=== PATIENT | male | born 1950 | race Caucasian/White ===

== ENCOUNTER → 2024-01-31 09:22 | Outpatient (REF) | payer MEDICARE, SELFPAY ==
[2024-01-31 10:41] LABS: ALT (SGPT) 15 U/L (0-50); AST (SGOT) 22 U/L (17-59); Alkaline Phosphatase 98 U/L (38-126); Blood Urea Nitrogen 22 mg/dl (9-20); Carbon Dioxide 28 mmol/L (22-30); Chloride 102 mmol/L (98-107); Glucose 107 mg/dl (70-99); Potassium 4.6 mmol/L (3.5-5.1); Sodium 133 mmol/L (135-145); Total Bilirubin 1.2 mg/dl (0.2-1.3); Total Protein 6.9 g/dl (6.3-8.2); eGFR > 60.00
[2024-01-31 10:54] LABS: Glycohemoglobin (HgbA1c) 5.8 % (4.0-5.6)
[2024-01-31 11:32] LABS: PSA, Total - Diagnostic 0.17 ng/ml (0.0-4.0)
== END ==
LOC: REG 09:22
PROVIDERS: ATTENDING PHYSICIAN Specialist; FAMILY PHYSICIAN Nurse Practitioner Family
DX: R97.20 Elevated prostate specific antigen [PSA] (principal); R73.01 Impaired fasting glucose
CPT/HCPCS: 36415; 80053; 83036; 84153

== ENCOUNTER → 2024-06-08 07:38 | Outpatient (REF) | payer MEDICARE, SELFPAY ==
[2024-06-08 09:26] LABS: % Basophils 1.3 % (0-2); % Eosinophils 2.9 % (0-6); % Immature Granulocytes 0.4 % (0-0.5); % Lymphocytes 27.5 % (20.5-51.1); % Monocytes 11.6 % (1.7-9.3); % Neutrophils 56.3 % (42.2-75.2); Absolute Basophils 0.1 10^3/uL (0-0.2); Absolute Eosinophils 0.2 10^3/uL (0-0.7); Absolute Lymphocytes 1.5 10^3/uL (1.2-3.4); Absolute Monocytes 0.7 10^3/uL (0.1-0.6); Absolute Neutrophils 3.2 10^3/uL (1.4-6.5); Hematocrit 38.9 % (39.0-52.0); Hemoglobin 13.4 g/dL (13.0-18.0); Mean Corp Hgb Conc. 34.4 g/dL (33.0-37.0); Mean Corpuscular Hgb 30.5 pg (27.0-31.0); Mean Corpuscular Volume 88.4 fL (80.0-94.0); Mean Platelet Volume 10.3 fL (7.4-10.4); Nucleated Red Blood Cells % 0 % (-); Platelet Count 173 10^3/uL (130-400); Red Cell Dist. Width 13.1 % (11.5-14.5); White Blood Cell Count 5.6 10^3/uL (4.8-10.8)
[2024-06-08 11:41] LABS: LDH 189 U/L (120-246)
== END ==
LOC: REG 07:38
PROVIDERS: ATTENDING PHYSICIAN Dermatology; FAMILY PHYSICIAN Family Medicine; REFERRING PHYSICIAN Specialist
DX: C85.89 Other specified types of non-Hodgkin lymphoma, extranodal and solid organ sites (principal)
CPT/HCPCS: 36415; 71046; 83615; 85025

== ENCOUNTER → 2024-08-05 10:47 | Outpatient (REF) | payer MEDICARE, SELFPAY ==
[2024-08-05 14:12] LABS: PSA, Total - Diagnostic 0.13 ng/ml (0.0-4.0)
== END ==
LOC: REG 10:47
PROVIDERS: ATTENDING PHYSICIAN Family Medicine Geriatric Medicine; FAMILY PHYSICIAN Family Medicine; REFERRING PHYSICIAN Specialist
DX: C61 Malignant neoplasm of prostate (principal)
CPT/HCPCS: 36415; 84153

== ENCOUNTER → 2025-01-08 09:54 | Outpatient (REF) | payer MEDICARE, SELFPAY ==
--- NOTE | 2025-01-08 11:02 | CARDSERVDEF ---
Echocardiogram with Definity completed after protocol screening completed. Allergies verified.
Patent IV site: Right upper arm inserted by IV team, site clear
IV site flushed with 0.9% NaCl pre and post administration.
Diluted bolus method utilized to enhance visualization of ventricular gómez.
Total volume given: __3__ mL
Patient tolerated all procedures well without complications.
Heplock D/C ed at 1100, site clear, no redness, no edema. Pressure held, no bleeding, 2x2 applied and taped. Pt offers no complaints.
== END ==
LOC: RCS 09:54
PROVIDERS: ATTENDING PHYSICIAN Internal Medicine Cardiovascular Disease; FAMILY PHYSICIAN Nurse Practitioner Family
DX: I48.0 Paroxysmal atrial fibrillation (principal); R06.09 Other forms of dyspnea
CPT/HCPCS: 93306; Q9957

== ENCOUNTER → 2025-01-21 07:19 | Outpatient (REF) | payer MEDICARE, SELFPAY | LOC: PAVMRI 07:19 | PROVIDERS: ATTENDING PHYSICIAN Otolaryngology; FAMILY PHYSICIAN Nurse Practitioner Family | DX: H90.3 Sensorineural hearing loss, bilateral (principal) | CPT/HCPCS: 70553; A9575 ==

== ENCOUNTER → 2025-02-05 14:35 | Outpatient (REF) | payer MEDICARE, SELFPAY ==
[2025-02-05 16:11] LABS: PSA, Total - Diagnostic 0.16 ng/ml (0.0-4.0)
== END ==
LOC: REG 14:35
PROVIDERS: ATTENDING PHYSICIAN Family Medicine Geriatric Medicine; FAMILY PHYSICIAN Family Medicine
DX: C61 Malignant neoplasm of prostate (principal)
CPT/HCPCS: 36415; 84153

== ENCOUNTER 2025-03-04 11:16 | Emergency (ER) | payer MEDICARE, SELFPAY ==
[2025-03-04 11:31] VITALS: BP 129/69
--- NOTE | 2025-03-04 14:49 | ED.GENMED ---
History of Present Illness
General
Chief Complaint: Back Pain
Source: patient
Time Seen by Provider: 03/04/25 13:51
History of Present Illness
History of Present Illness:
74-year-old male presents to the emergency room complaining of back pain. Patient indicates he has pain in his upper lumbar region more on the right than the left but exists bilaterally. The pain does not radiate up his back nor down to his legs.
Pain is worse with movement. He denies shortness of breath. He has been seeing a chiropractor who helped to manipulate his floating ribs but the pain still exist. He states the pain seemed to get worse after he was maneuvered on a gurney to
obtain an MRI of his brain recently. He denies any bowel or bladder dysfunction. He denies any numbness in his extremities or perineal area. He denies any urinary symptoms. Patient was seen by an orthopedic surgeon recently who referred him to
outside pain management and he has a MRI scheduled for 5 days from now. Patient is not sure he could last all then. He has been taking 200 mg of ibuprofen once at night for the discomfort and no other medications.
Past History
Past History
ED Past Medical History: None, Arrthythmia (Atrial fib questionable), Cancer (Colon CA, Prostate CA with radiation), Hypercholesterolemia and Other (Melanoma)
ED Past Surgical History: Bowel resection (Colostomy with reversal), Orthopedic and Other (Cataract Surgery X2)
Social History
Tobacco: Former smoker
Alcohol: None
Drug: None
Personal: Single
Living: alone
Phy Exam
Physical Exam
Physical Exam:
General: Awake, Alert, Oriented X3. No acute distress. Very high BMI
Vitals: unremarkable
Head: Atraumatic
Eyes: Pupils equal, EOMI
Throat: Airway intact, no exudates
Neck: Trachea midline
Lungs: Clear and equal b/l
Heart: Regular rate, no murmurs
Abd: Soft, Nontender, No pulsatile mass
Back: Tenderness to palpation upper lumbar paraspinal musculature particularly on the right side. There is no radiation of pain down the leg with straight leg raising in either side
Neuro: No focal weakness
Skin: Warm, dry, no rash
Extremities: pulses equal b/l, no edema
Course
Orders/Labs/Results
Orders:
Orders
03/04/25 14:48
Ketorolac [Toradol] 15 mg IV NOW STA
03/04/25 14:49
CT Abd/pelvis W Iv Cont Urgent
Comment:
Reason For Exam: right flank/back pain
03/04/25 15:32
Basic Metabolic Panel Urgent
Complete Blood Count/With Diff Urgent
03/04/25 16:55
Acetaminophen [Tylenol] 1,000 mg PO NOW STA
Lidocaine [Lidocaine 4% Patch] 1 patch TOPICAL NOW STA
Apply Lidocaine patch(s) to:: back
Oxycodone [Roxicodone] 5 mg PO NOW STA
Abnormal Lab Results
03/04/25
15:32
Absolute Monos (auto) 0.7 H 10^3/uL
(0.1-0.6)
BUN 22 H mg/dl
(9-20)
Creatinine 0.6 L mg/dL
(0.7-1.3)
Glucose 102 H mg/dl
(70-99)
03/04/25 15:32
03/04/25 15:32
Vital Signs
Initial and Last Documented VS:
Initial Vital Signs
Temp Pulse Resp BP Pulse Ox
98.4 F 67 18 129/69 97
03/04/25 11:31 03/04/25 11:31 03/04/25 11:31 03/04/25 11:31 03/04/25 11:31
Last Documented Vital Signs
Temp Pulse Resp BP Pulse Ox
97.9 F 71 18 147/73 98
03/04/25 17:09 03/04/25 17:09 03/04/25 11:31 03/04/25 17:09 03/04/25 17:09
MDM/Problems Addressed
Differential Diagnosis Includes:
Compression fracture, degenerative joint disease, retroperitoneal hematoma, kidney stone
MDM/Problems Addressed:
Patient presents with back pain which has been a chronic issue but worse over the past several days. No focal neurologic findings. Nothing on the history or physical to suggest a cord compression or other emergency. CT of the abdomen pelvis shows
no acute intra-abdominal pathology. He does have significant degenerative changes of the spine. Patient feels somewhat better after treatment here. Ultimately he was able to be discharged home. Will discharge him with a short course of oxycodone
and oral steroids. He has follow-up with Ortho spine. He has a outpatient MRI scheduled.
*Radiology
Radiology exam reviewed: radiology read reviewed
*Pulse Oximetry
Patient hypoxic: no
*Critical Care Note
Total Time (30-74mins, 75-104mins- exclusive of procedures): Not Applicable
ED Attending Note
-
Portions of this chart may have been created with voice recognition software.� Occasional wrong word or��sound alike� substitutions may have occurred due to the inherent limitations of voice recognition software.
Discharge Plan
Departure
Patient Disposition: Home (Routine Discharge)
Date of Disposition: 03/04/25
Time of Disposition: 18:34
Patient with high blood pressure during this ER visit?: No
Condition: Good
Discharge Problem:
Low back pain
Instructions: Low Back Pain (DC)
Prescriptions:
New
oxycodone 5 mg tablet
5 mg PO Q6H PRN (Reason: Pain) Qty: 12 0RF
prednisone 20 mg tablet
40 mg PO DAILY Qty: 8 0RF
No Action
ibuprofen-diphenhydramine cit [Advil PM] 1 TAB tablet
2 tab PO HS
tadalafil [Cialis] 5 MG tablet
5 mg PO HS
tamsulosin [Flomax] 0.4 MG capsule
0.4 mg PO HS
apixaban [Eliquis] 5 MG tablet
5 mg PO BID
Referrals:
Sonal Walker CRNP [Family Provider] -
Activity Restrictions/Additional Instructions:
Return to the ER if you develop weakness in your legs, bowel or bladder incontinence or any other concerns. Follow up with your back doctor and get the MRI as scheduled.
Interventions
Interventions:
*Risk Screen - Suicide Last Done: 03/04/25 11:31
*General Assessment Last Done: 03/04/25 11:31
*Neglect/Abuse Screening Last Done: 03/04/25 11:31
*ED- Fall Risk Assessment Last Done: 03/04/25 11:31
*ED COVID-19 Vaccine History Last Done: 03/04/25 11:31
*Nursing Disposition Last Done: 03/04/25 19:35
ED-Musculoskeletal Assessment Last Done: 03/04/25 14:42
Discharge Date and Time
Discharge Date/Time: 03/04/25 19:36
Print Language: ICELANDIC
[2025-03-04 15:21] VITALS: BP 158/84
[2025-03-04] MEDS: TORADOL 15 MG IV (15:31)
[2025-03-04 15:38] VITALS: BMI 49.3
[2025-03-04 15:47] LABS: % Basophils 0.8 % (0-2); % Eosinophils 1.8 % (0-6); % Immature Granulocytes 0.5 % (0-0.5); % Lymphocytes 25.8 % (20.5-51.1); % Neutrophils 62.1 % (42.2-75.2); Absolute Basophils 0.1 10^3/uL (0-0.2); Absolute Eosinophils 0.1 10^3/uL (0-0.7); Absolute Lymphocytes 2.1 10^3/uL (1.2-3.4); Absolute Monocytes 0.7 10^3/uL (0.1-0.6); Hematocrit 44.2 % (39.0-52.0); Hemoglobin 15.5 g/dL (13.0-18.0); Mean Corp Hgb Conc. 35.1 g/dL (33.0-37.0); Mean Corpuscular Volume 88.4 fL (80.0-94.0); Mean Platelet Volume 10.1 fL (7.4-10.4); Nucleated Red Blood Cells % 0 % (-); Platelet Count 178 10^3/uL (130-400); Red Cell Dist. Width 12.8 % (11.5-14.5)
[2025-03-04 16:01] LABS: Blood Urea Nitrogen 22 mg/dl (9-20); Calcium 9.3 mg/dl (8.4-10.2); Carbon Dioxide 23 mmol/L (22-30); Chloride 104 mmol/L (98-107); Estimated Creatinine Clearance > 125 ml/min; Glucose 102 mg/dl (70-99); Potassium 4.5 mmol/L (3.5-5.1); Sodium 139 mmol/L (135-145); eGFR > 60.00
[2025-03-04] MEDS: TYLENOL 1000 MG PO (17:04)
[2025-03-04] MEDS: ROXICODONE 5 MG PO (17:04)
[2025-03-04] MEDS: LIDOCAINE 4% PATCH 1 PATCH TOPICAL (17:05)
[2025-03-04 17:09] VITALS: BP 147/73
== END 2025-03-04 19:36 | disposition home or self-care (01) ==
LOC: EMR 11:16
PROVIDERS: EMERGENCY PHYSICIAN Emergency Medicine; FAMILY PHYSICIAN Nurse Practitioner Family
DX: M54.9 Dorsalgia, unspecified (principal); E78.00 Pure hypercholesterolemia, unspecified; Z87.891 Personal history of nicotine dependence
CPT/HCPCS: 99284; 96374; 74177; 80048; 85025; Q9967

== ENCOUNTER → 2025-03-09 11:26 | Outpatient (REF) | payer MEDICARE, SELFPAY | LOC: PAVMRI 11:26 | PROVIDERS: ATTENDING PHYSICIAN Pain Medicine Interventional Pain Medicine; FAMILY PHYSICIAN Nurse Practitioner Family | DX: M54.16 Radiculopathy, lumbar region (principal) | CPT/HCPCS: 72148 ==

== ENCOUNTER 2025-04-19 10:35 | Emergency (ER) | payer MEDICARE, SELFPAY ==
[2025-04-19 10:45] VITALS: BP 138/79
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
[2025-04-19] MEDS: ROXICODONE 5 MG PO (13:17)
[2025-04-19] MEDS: DELTASONE 50 MG PO (13:17)
[2025-04-19 14:45] VITALS: BP 130/90
== END 2025-04-19 15:00 | disposition home or self-care (01) ==
LOC: EMR 10:35
PROVIDERS: EMERGENCY PHYSICIAN Emergency Medicine; FAMILY PHYSICIAN Family Medicine
DX: M17.12 Unilateral primary osteoarthritis, left knee (principal); E78.00 Pure hypercholesterolemia, unspecified; Z87.891 Personal history of nicotine dependence
CPT/HCPCS: 99283; 73564

== ENCOUNTER → 2025-04-27 12:05 | Outpatient (REF) | payer MEDICARE, SELFPAY ==
[2025-04-27 13:43] LABS: % Basophils 0.7 % (0-2); % Eosinophils 1.8 % (0-6); % Immature Granulocytes 0.7 % (0-0.5); % Lymphocytes 22.5 % (20.5-51.1); % Monocytes 9.8 % (1.7-9.3); % Neutrophils 64.5 % (42.2-75.2); Absolute Basophils 0.1 10^3/uL (0-0.2); Absolute Eosinophils 0.1 10^3/uL (0-0.7); Absolute Immature Granulocytes 0.1 10^3/uL (0-0.05); Absolute Lymphocytes 1.6 10^3/uL (1.2-3.4); Absolute Monocytes 0.7 10^3/uL (0.1-0.6); Absolute Neutrophils 4.7 10^3/uL (1.4-6.5); Hematocrit 42.4 % (39.0-52.0); Hemoglobin 14.4 g/dL (13.0-18.0); Mean Corpuscular Hgb 30.6 pg (27.0-31.0); Mean Corpuscular Volume 90.2 fL (80.0-94.0); Mean Platelet Volume 10.6 fL (7.4-10.4); Nucleated Red Blood Cells % 0 % (-); Platelet Count 178 10^3/uL (130-400); Red Cell Dist. Width 13.3 % (11.5-14.5); White Blood Cell Count 7.3 10^3/uL (4.8-10.8)
[2025-04-27 14:37] LABS: ALT (SGPT) 14 U/L (0-50); AST (SGOT) 18 U/L (17-59); Albumin 4.1 g/dl (3.5-5.0); Alkaline Phosphatase 94 U/L (38-126); Blood Urea Nitrogen 23 mg/dl (9-20); Calcium 9.2 mg/dl (8.4-10.2); Carbon Dioxide 28 mmol/L (22-30); Chloride 105 mmol/L (98-107); Glucose 115 mg/dl (70-99); LDH 206 U/L (120-246); Potassium 4.4 mmol/L (3.5-5.1); Sodium 139 mmol/L (135-145); Total Bilirubin 0.9 mg/dl (0.2-1.3); Total Protein 6.7 g/dl (6.3-8.2); eGFR > 60.00
== END ==
LOC: REG 12:05
PROVIDERS: ATTENDING PHYSICIAN Dermatology; FAMILY PHYSICIAN Family Medicine
DX: C85.89 Other specified types of non-Hodgkin lymphoma, extranodal and solid organ sites (principal)
CPT/HCPCS: 36415; 80053; 83615; 85025

== ENCOUNTER → 2025-05-01 09:51 | Outpatient (REF) | payer MEDICARE, SELFPAY ==
[2025-05-01 10:38] LABS: HDL Cholesterol 62 mg/dl; LDL Cholesterol, Calculated 128 mg/dl; Phosphorus 2.5 mg/dl (2.5-4.5); Total Cholesterol 199 mg/dl (50-199); Triglyceride 47 mg/dl (10-149); Uric Acid 5.3 mg/dl (3.5-8.5); Very Low Density Lipoprotein 9 mg/dl (0-30)
[2025-05-01 10:53] LABS: Free T4 1.32 ng/dl (0.78-2.19)
[2025-05-01 13:01] LABS: Glycohemoglobin (HgbA1c) 5.8 % (4.0-5.6)
== END ==
LOC: REG 09:51
PROVIDERS: ATTENDING PHYSICIAN Internal Medicine Endocrinology, Diabetes & Metabolism; FAMILY PHYSICIAN Family Medicine; OTHER PHYSICIAN Specialist
DX: E66.1 Drug-induced obesity (principal); E78.41 Elevated Lipoprotein(a); G47.30 Sleep apnea, unspecified; R73.01 Impaired fasting glucose
CPT/HCPCS: 36415; 80061; 83036; 83735; 84100; 84439; 84550

== ENCOUNTER → 2025-07-08 14:13 | Outpatient (REF) | payer MEDICARE, SELFPAY ==
[2025-07-08 16:01] LABS: PSA, Total - Screen 0.12 ng/ml (0.0-4.0)
== END ==
LOC: REG 14:13
PROVIDERS: ATTENDING PHYSICIAN Family Medicine Geriatric Medicine; FAMILY PHYSICIAN Nurse Practitioner Family
DX: Z12.5 Encounter for screening for malignant neoplasm of prostate (principal)
CPT/HCPCS: 36415; G0103

== ENCOUNTER 2025-10-14 00:45 | Emergency (ER) | payer MEDICARE, SELFPAY ==
[2025-10-14 00:46] VITALS: BP 121/62
[2025-10-14] MEDS: TYLENOL 1000 MG PO (01:55)
[2025-10-14] MEDS: TORADOL 15 MG IM (01:56)
[2025-10-14 02:37] VITALS: BP 134/68; BMI 48.5
--- NOTE | 2025-10-14 02:53 | ED.GENMED ---
History of Present Illness
General
Chief Complaint: Musculo-Skeletal Complaint
Source: patient
Exam Limitations: none
Time Seen by Provider: 10/14/25 00:59
Nursing documentation reviewed up to this point in time: agreed with
History of Present Illness
History of Present Illness:
75-year-old male past medical history of A-fib, not currently anticoagulated presenting to the emergency department today with concerns of left ankle pain intermittently over the past few weeks specifically worse tonight. No redness or warmth no
fevers no chest pain or shortness of breath. Denies any known injuries. Does have significant chronic arthritis that he is aware of.
Past History
Past History
ED Past Medical History: None, Arrthythmia (Atrial fib questionable), Cancer (Colon CA, Prostate CA with radiation), Hypercholesterolemia and Other (Melanoma)
ED Past Surgical History: Bowel resection (Colostomy with reversal), Orthopedic and Other (Cataract Surgery X2)
Social History
Tobacco: Former smoker
Alcohol: None
Drug: None
Personal: Single
Living: alone
Review of Systems
Review of Systems
Allergies reviewed?: Yes
All Other Systems: ROS reviewed and negative except as documented in HPI and ROS
Phy Exam
Physical Exam
Physical Exam:
GENERAL: Alert , in no apparent distress
EYE: pupils equal and reactive
NECK: Supple, no significant adenopathy.
ENT: o/p clr, mmm.
CARDIAC: Regular rate and rhythm .
LUNGS: Clear breath sounds bilaterally, no acute respiratory distress, no wheezes/rales/rhonchi
ABDOMEN: Soft, without focal tenderness, no r/g, no cvat
NEUROLOGICAL: Alert and oriented, no focal neuro deficits
SKIN: Warm and dry, skin intact.
MUSCULOSKELETAL: No obvious swelling to the left ankle no significant pain good range of motion no redness or warmth good pulses no edema, well perfused.
PSYCH: Normal and appropriate interaction.
Course
Orders/Labs/Results
Orders:
Orders
10/14/25 00:52
CR Ankle - Left Min 3 Views Urgent
Comment:
Reason For Exam: pain, no injury
Foot, Left 3 View [CR Foot - Left Min 3 Views] Urgent
Comment: foot pain, L metatarsal
Reason For Exam: pain no injury
10/14/25 01:50
Acetaminophen [Tylenol] 1,000 mg PO NOW STA
Ketorolac [Toradol] 15 mg IM NOW STA
Venous Doppler Lwr Ext Left [US Perip Venous LOWER Ext LT] Urgent
Comment:
Reason For Exam: leg pain
10/14/25 02:43
Mayank Wrap Left-Treatment ONCE
Vital Signs
Initial and Last Documented VS:
Initial Vital Signs
Temp Pulse Resp BP Pulse Ox
97.4 F 75 18 121/62 95
10/14/25 00:46 10/14/25 00:46 10/14/25 00:46 10/14/25 00:46 10/14/25 00:46
Last Documented Vital Signs
Temp Pulse Resp BP Pulse Ox
97.4 F 84 20 134/68 98
10/14/25 00:46 10/14/25 02:37 10/14/25 02:37 10/14/25 02:37 10/14/25 02:37
MDM/Problems Addressed
MDM/Problems Addressed:
75-year-old male presenting to the emergency department with intermittent pain to the left ankle without specific inciting event over the past few weeks no reproducible pain but does describe discomfort just anterior to the left lateral malleolus.
X-rays performed that show significant arthritis but no emergent findings ultrasound without signs of blood clot. No redness or warmth no clinical signs of infection. Advised for close outpatient follow-up with podiatry. Return precautions given.
*Pulse Oximetry
SaO2: 98
Oxygen Mode of Delivery: Room air
Patient hypoxic: no (98)
*Critical Care Note
Total Time (30-74mins, 75-104mins- exclusive of procedures): Not Applicable
ED Attending Note
-
Portions of this chart may have been created with voice recognition software.� Occasional wrong word or��sound alike� substitutions may have occurred due to the inherent limitations of voice recognition software.
Discharge Plan
Departure
Patient Disposition: Home (Routine Discharge)
Date of Disposition: 10/14/25
Time of Disposition: 02:57
Patient with high blood pressure during this ER visit?: No
Condition: Good
Covid-19: Not Applicable
Discharge Problem:
Ankle pain
Instructions: Sprain (DC)
Prescriptions:
No Action
ibuprofen-diphenhydramine cit [Advil PM] 1 TAB tablet
2 tab PO HS
tadalafil [Cialis] 5 MG tablet
5 mg PO HS
tamsulosin [Flomax] 0.4 MG capsule
0.4 mg PO HS
apixaban [Eliquis] 5 MG tablet
5 mg PO BID
oxycodone 5 mg tablet
5 mg PO Q6H PRN (Reason: Pain) Qty: 12 0RF
prednisone 20 mg tablet
40 mg PO DAILY Qty: 8 0RF
prednisone 20 mg tablet
40 mg PO DAILY Qty: 8 0RF
oxycodone 5 mg tablet
5 mg PO Q8H PRN (Reason: Pain) Qty: 7 0RF
Referrals:
Sonal Walker CRNP [Family Provider, Family Practice]
Activity Restrictions/Additional Instructions:
You came to the emergency department today with concerns of ankle discomfort. Here your reassuring assessment with normal ultrasound and x-ray without emergent findings. Please rest ice compress and elevate and follow-up closely with your foot
doctor in the next week or so. Return for any worsening, new or concerning symptoms.
Interventions
Interventions:
*Risk Screen - Suicide Last Done: 10/14/25 00:46
*General Assessment Last Done: 10/14/25 01:30
*Neglect/Abuse Screening Last Done: 10/14/25 01:31
*ED COVID-19 Vaccine History Last Done: 10/14/25 01:30
*ED Influenza Vaccine History Last Done: 10/14/25 01:30
[facility] Fall Risk Assessment Tool Last Done: 10/14/25 01:31
ED-Musculoskeletal Assessment Last Done: 10/14/25 01:31
Discharge Date and Time
Print Language: [place]ENTR[place]FR[place]
== END 2025-10-14 03:05 | disposition home or self-care (01) ==
LOC: EMR 00:45
PROVIDERS: EMERGENCY PHYSICIAN Emergency Medicine; FAMILY PHYSICIAN Nurse Practitioner Family
DX: M25.572 Pain in left ankle and joints of left foot (principal); M79.605 Pain in left leg; I48.91 Unspecified atrial fibrillation; E78.00 Pure hypercholesterolemia, unspecified; Z87.891 Personal history of nicotine dependence; Z85.038 Personal history of other malignant neoplasm of large intestine
CPT/HCPCS: 96372; 99284; 73610; 73630; 93971